=== PATIENT | female | born 1995 | race Caucasian/White ===

== ENCOUNTER 2019-07-16 06:39 | Emergency (ER) | payer OTHER ==
[~2019-07-16] VITALS: Ht 170.2 cm; Wt 57.2 kg
[2019-07-16 06:39] VITALS: BP 140/78
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
[2019-07-16 07:00] VITALS: BP 140/78
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
== END 2019-07-16 07:00 ==
LOC: MED 06:39
DX: M25.531 Pain in right wrist (principal); M25.532 Pain in left wrist; J45.909 Unspecified asthma, uncomplicated; V49.49XA Driver injured in collision with other motor vehicles in traffic accident, initial encounter; W22.10XA Striking against or struck by unspecified automobile airbag, initial encounter; Y93.89 Activity, other specified; Y92.488 Other paved roadways as the place of occurrence of the external cause; Y99.8 Other external cause status
CPT/HCPCS: 99283